=== PATIENT | male | born 1965 | race Caucasian/White ===

== ENCOUNTER 2018-11-28 11:12 | Observation (INO) | payer SELFPAY ==
[~2018-11-28] VITALS: Ht 165.1 cm; Wt 81.6 kg
--- NOTE | 2018-11-28 11:32 | NUR ---
PT TO ROOM WITH A STEADY GAIT.
--- NOTE | 2018-11-28 11:40 | NUR ---
PT RESTING IN BED IN NO ACUTE DISTRESS, WHEEZING AND RHONCHI THROUGHOUT LUNG HINES AT THIS TIME. O2 SAT 95% ON RA. SKIN PWD
[2018-11-28 12:13] LABS: HEMATOCRIT 50.3 % (39.0-50.0); HEMOGLOBIN 16.5 g/dl (14.0-18.0); IMMATURE GRANULOCYTES 0.6 % (0.0-5.0); MEAN CELL VOLUME 92.6 fL CALC (80.0-100.0); MEAN CORPUSCULAR HGB 30.4 pG CALC (26.0-32.0); MEAN CORPUSCULAR HGB CONC 32.8 g/L CALC (32.0-36.0); NEUT# 5.09 thou/uL (1.82-7.42); RED BLOOD COUNT 5.43 mill/uL (4.70-6.10); RED CELL DISTRI WIDTH 12.8 % (11.5-15.5)
[2018-11-28 12:35] LABS: ALBUMIN 4.6 g/dL (3.2-5.0); ALKALINE PHOSPHATASE 87 u/l (38-126); ANION GAP 15 (6-22 (CALC)); BUN 6 mg/dL (9-20); BUN/CREATININE RATIO 8 (12-20 (CALC)); CARBON DIOXIDE 28 mmol/l (22-30); CHLORIDE 97 mmol/l (95-108); CREATININE 0.8 mg/dL (0.7-1.3); GFR > 60 ML/MIN (>=60 (CALC)); GFR FOR AFR.AMER. > 60 ML/MIN (>=60 (CALC)); POTASSIUM 4.7 mmol/l (3.5-5.1); SGOT/AST 59 u/l (17-59); SODIUM 135 mmol/l (137-146); TOTAL PROTEIN 7.4 g/dL (6.3-8.2)
--- NOTE | 2018-11-28 12:45 | NUR ---
PT IN NO ACUTE DISTRESS, COMPLETING BREATHING TX ORDERED. O2 SAT 99% ON o2@2LPM VIA NC. PT STATES HE FEELS LIKE HE IS BREATHIGN "MUCH EASIER". NO DYSPNEA OR SOB, NOTED WET NON PRODUCTIVE COUGH
--- NOTE | 2018-11-28 13:40 | NUR ---
PT RESTING COMFORTABLY WITH HOB ELEVATED ON O2@2LPM VIA NC. LUNGS COARSE BILATERALLY. IV ABT CONTINUES VIA H/L.PT TOLERATING WELL AND AGREEABLE TO ADMIT
--- NOTE | 2018-11-28 14:35 | NUR ---
1435 - TRANSPORTED TO MED SURG ROOM 261, HANDOFF TO PATTY ZAMORANO
--- NOTE | 2018-11-28 14:35 | NUR ---
Admission Note Report Given to: SBAR PRINTED TO FLOOR Transported by: X Wheelchair Stretcher Transported with: X Nurse Transporter X Patent IV O2 X It Network Engineer
--- NOTE | 2018-11-28 14:40 | NUR ---
PT ARRIVED TO FLOOR VIA WC ACCOMPANIED BY JAUN FREIRE. PT AMBULATES INDEPENDENTLY. STEADY GAIT. SOB W/ EXERTION. O2 @ 2L VIA NC. 320 RAC, SALINE LOCK. ALERT AND ORIENTED. PT ORIENTED TO ROOM AND EQUIPMENT. PLAN OF CARE DISCUSSED. CALL LIGHT REVIEWED AND IN REACH. TELE UNIT READING SR @ 92 PER TAI PUGA IN ED. ASSESSMENT COMPLETED AT THIS TIME. PT DENIES PAIN. REPORTING OF CONCERNS ENCOURAGED. PT STATES UNDERSTANDING.
--- NOTE | 2018-11-28 16:05 | NUR ---
PT TO CT FOR CT OF CHEST VIA WC ACCOMPANIED BY VOLUNTEER. RETURNED TO ROOM. HARRIS PROVIDED TO PT. NO OTHER COMPLAINTS AT THIS TIME.
[2018-11-28 16:09] VITALS: BP 176/81
--- NOTE | 2018-11-28 16:19 | NUR ---
DR. ASHLEY IN TO SEE PT. AT THIS TIME.
[2018-11-28 19:16] VITALS: BP 155/56
--- NOTE | 2018-11-28 20:00 | NUR ---
PT AMBULATING IN ROOM, NO SIGNS OF DISTRESS NOTED, RESP EVEN AND UNLABORED. PT ALERT AND ORIENTED X3, NO EDEMA. DISCUSSED POC, PT IN AGREEMENT. ASSESSMENT COMPLETED, CALL LIGHT IN REACH,CONTINUE TO MONITOR.
--- NOTE | 2018-11-28 21:30 | NUR ---
PT SITTING IN RECLINER, NO SIGNS OF DISTRESS NOTED, RESP EVEN AND UNLABORED. PT MEDICATED PER MAR, CALL LIGHT IN REACH,CONTINUE TO MONITOR.
[2018-11-29] VITALS: BP 159/86
--- NOTE | 2018-11-29 | NUR ---
PT SITTING IN BED WATCHING TV, NO SIGNS OF DISTRESS NOTED, RESP EVEN AND UNLABORED. VOICES NO NEEDS OR COMPLAINTS AT THIS TIME, CALL LIGHT IN REACH,CONTINUE TO MONITOR.
[2018-11-29 05:02] VITALS: BP 174/86
[2018-11-29 06:15] LABS: HEMATOCRIT 47.2 % (39.0-50.0); HEMOGLOBIN 15.8 g/dl (14.0-18.0); IMMATURE GRANULOCYTES 0.5 % (0.0-5.0); MEAN CELL VOLUME 91.8 fL CALC (80.0-100.0); MEAN CORPUSCULAR HGB 30.7 pG CALC (26.0-32.0); MEAN CORPUSCULAR HGB CONC 33.5 g/L CALC (32.0-36.0); NEUT# 6.95 thou/uL (1.82-7.42); RED BLOOD COUNT 5.14 mill/uL (4.70-6.10); RED CELL DISTRI WIDTH 12.6 % (11.5-15.5)
[2018-11-29 06:35] LABS: ALBUMIN 4.2 g/dL (3.2-5.0); ALKALINE PHOSPHATASE 74 u/l (38-126); ANION GAP 12 (6-22 (CALC)); BILIRUBIN, TOTAL 0.7 mg/dL (0.0-1.4); BUN 11 mg/dL (9-20); BUN/CREATININE RATIO 14 (12-20 (CALC)); CARBON DIOXIDE 27 mmol/l (22-30); CHLORIDE 101 mmol/l (95-108); CREATININE 0.8 mg/dL (0.7-1.3); GFR > 60 ML/MIN (>=60 (CALC)); GFR FOR AFR.AMER. > 60 ML/MIN (>=60 (CALC)); LIPASE 56 u/l (23-300); MAGNESIUM 2.3 mg/dL (1.6-2.3); POTASSIUM 4.2 mmol/l (3.5-5.1); SGOT/AST 27 u/l (17-59); SODIUM 136 mmol/l (137-146); TOTAL PROTEIN 6.9 g/dL (6.3-8.2)
[2018-11-29 06:42] LABS: AMYLASE < 30 u/l (30-110)
--- NOTE | 2018-11-29 06:50 | NUR ---
PT REPORT RECIEVED FROM WILLIAM GONZALEZ. PT RESTING. NO S/S OF DISTRESS. CALL LIGHT IN REACH. WILL CONTINUE TO MONITOR.
[2018-11-29 07:48] VITALS: BP 159/80
--- NOTE | 2018-11-29 07:48 | NUR ---
PT A/O X3. SPEECH IS CLEAR. NONPRODUCTIVE COUGH NOTED. RESP EVEN AND UNLABORED. LUNG SOUNDS COARSE. TELE IN PLACE. O2 @2L ON PT. BOWEL SOUNDS ACTIVE X4. STRONG RADIAL AND PEDAL PULSES. #20 RAC SL. FLUSHED AND PATENT. SITE APPEARS HEALTHY. PT DENIES ANY PAIN OR NEEDS. POC DISCUSSED. SAFETY PRECAUTIONS IN PLACE. CALL LIGHT IN REACH. WILL CONTINUE TO MONITOR.
[2018-11-29 11:20] VITALS: BP 167/81
--- NOTE | 2018-11-29 11:33 | NUR ---
DR. ASHLEY IN TO SEE PT
--- NOTE | 2018-11-29 12:20 | NUR ---
PT WATCHING TELEVISION. NO C/O PAIN OR NEEDS. TELE IN PLACE. CALL LIGHT IN REACH. WILL CONTINUE TO MONITOR.
[2018-11-29] MEDS ORDERED: DOXYCYCL HYC100 MG PO (12:30)
[2018-11-29] MEDS ORDERED: MEDDOSEPAK PO (12:30)
[2018-11-29] MEDS ORDERED: ALBUTEROL1 IN (12:32)
--- NOTE | 2018-11-29 12:55 | NUR ---
D/C INSTRUCTIONS DISCUSSED W/ PT. PT STATES UNDERSTANDING. IV REMOVED. CATHETER INTACT. TELE REMOVED. PT GETTING DRESSED AT THIS TIME.
--- NOTE | 2018-11-29 13:20 | NUR ---
Discharge instructions given. Patient verbalizes understanding of same. Discharged in stable condition via Wheelchair to Home with *Other. All belongings sent with pt.
== END 2018-11-29 13:15 | disposition home or self-care (01) | DRG 192 ==
LOC: ED 11:12 → ED-I 12:50 → ED 12:55 → MS2 12:56
PROVIDERS: Family Medicine; ADMIT Internal Medicine Nephrology; ATTEND Internal Medicine Nephrology
DX: J44.1 Chronic obstructive pulmonary disease with (acute) exacerbation (principal); I10 Essential (primary) hypertension; F17.210 Nicotine dependence, cigarettes, uncomplicated
CPT/HCPCS: G0378

== ENCOUNTER 2022-04-17 00:20 | Observation (INO) | payer SELFPAY ==
[2022-04-17] VITALS (28 sets, daily range): BP systolic 139–236; BP diastolic 69–113
[~2022-04-17] VITALS: Ht 165.1 cm; Wt 74.0 kg
[~2022-04-17 00:20] MED LIST: ALBUTEROL1 IN; DOXYCYCL HYC100 MG PO; MEDDOSEPAK PO
[2022-04-17 01:16] LABS: HEMATOCRIT 47.4 % (39.0-50.0); HEMOGLOBIN 15.8 g/dl (14.0-18.0); IMMATURE GRANULOCYTES 0.6 % (0.0-5.0); MEAN CELL VOLUME 94.8 fL CALC (80.0-100.0); MEAN CORPUSCULAR HGB 31.6 pG CALC (26.0-32.0); MEAN CORPUSCULAR HGB CONC 33.3 g/dL CAL (32.0-36.0); NEUT# 3.92 thou/uL (1.82-7.42); RED CELL DISTRI WIDTH 12.7 % (11.5-15.5)
[2022-04-17 01:41] LABS: ALBUMIN 3.8 g/dL (3.2-5.0); ALKALINE PHOSPHATASE 68 u/l (38-126); ANION GAP 10 (6-22 (CALC)); BILIRUBIN, TOTAL 0.9 mg/dL (0.0-1.4); BUN 15 mg/dL (9-20); BUN/CREATININE RATIO 16 (12-20 (CALC)); CARBON DIOXIDE 28 mmol/l (22-30); CHLORIDE 103 mmol/l (95-108); CREATININE 0.9 mg/dL (0.7-1.3); GFR FOR AFR.AMER. > 60 ML/MIN (>=60 (CALC)); GFR OTHER RACES > 60 ML/MIN (>=60 (CALC)); SGOT/AST 46 u/l (17-59); SODIUM 137 mmol/l (137-146); TOTAL PROTEIN 6.9 g/dL (6.3-8.2)
[2022-04-17 01:45] LABS: URINE BLOOD DIPSTICK LARGE (NEGATIVE); URINE GLUCOSE - DIPSTICK NEGATIVE (NEGATIVE); URINE KETONE NEGATIVE (NEGATIVE); URINE PH 5.5 (4.5-8.0); URINE PROTEIN - DIPSTICK 30 mg/dL (NEG-TRACE); URINE SPECIFIC GRAVITY >=1.030
[2022-04-17 01:46] LABS: URINE BILIRUBIN - DIPSTICK SMALL (NEGATIVE); URINE NITRITE - DIPSTICK NEGATIVE (Negative)
[2022-04-17 01:47] LABS: URINE COLOR DK. YELLOW; URINE LEUK ESTERASE NEGATIVE (NEGATIVE)
[2022-04-17 01:51] LABS: URINE BACTERIA FEW hpf; URINE EPITHELIAL CELLS FEW EPI/hpf (0-FEW); URINE RBC 25-50 RBC/hpf (0-5)
[2022-04-17 01:54] LABS: MYOGLOBIN 25 ng/mL (0 - 121)
[2022-04-17] MEDS ORDERED: ULTRAM50 M1 PO (03:26)
[2022-04-17] MEDS ORDERED: TAMSULOSIN0.4 MG PO (03:26)
[2022-04-17] MEDS ORDERED: MEDDOSEPAK PO (03:26)
[2022-04-17] MEDS ORDERED: ALBUTEROL SUL0.083 % NEB (03:48)
[2022-04-18] VITALS (7 sets, daily range): BP systolic 124–171; BP diastolic 54–70
[2022-04-18 05:38] LABS: IMMATURE GRANULOCYTES 0.4 % (0.0-5.0); MEAN CELL VOLUME 94.9 fL CALC (80.0-100.0); MEAN CORPUSCULAR HGB 31.6 pG CALC (26.0-32.0); MEAN CORPUSCULAR HGB CONC 33.3 g/dL CAL (32.0-36.0); NEUT# 7.69 thou/uL (1.82-7.42); RED BLOOD COUNT 4.11 mill/uL (4.70-6.10); RED CELL DISTRI WIDTH 12.9 % (11.5-15.5)
[2022-04-18 06:19] LABS: ANION GAP 9 (6-22 (CALC)); BUN 12 mg/dL (9-20); BUN/CREATININE RATIO 13 (12-20 (CALC)); CARBON DIOXIDE 23 mmol/l (22-30); CHLORIDE 107 mmol/l (95-108); GFR FOR AFR.AMER. > 60 ML/MIN (>=60 (CALC)); GFR OTHER RACES > 60 ML/MIN (>=60 (CALC)); MAGNESIUM 1.9 mg/dL (1.6-2.3); POTASSIUM 3.2 mmol/l (3.5-5.1); SODIUM 135 mmol/l (137-146)
[2022-04-19 04:24] VITALS: BP 163/86
[2022-04-19 05:39] LABS: ANION GAP 11 (6-22 (CALC)); BUN 12 mg/dL (9-20); BUN/CREATININE RATIO 17 (12-20 (CALC)); CARBON DIOXIDE 21 mmol/l (22-30); CHLORIDE 107 mmol/l (95-108); CREATININE 0.8 mg/dL (0.7-1.3); GFR FOR AFR.AMER. > 60 ML/MIN (>=60 (CALC)); GFR OTHER RACES > 60 ML/MIN (>=60 (CALC)); POTASSIUM 3.6 mmol/l (3.5-5.1); SODIUM 135 mmol/l (137-146)
[2022-04-19 06:37] VITALS: BP 145/65
[2022-04-19 07:18] VITALS: BP 145/65
[2022-04-19] MEDS ORDERED: ADLT ASA LOW81 MG PO (11:49)
[2022-04-19] MEDS ORDERED: AMLODIPINE BESYL5 MG PO (11:49)
[2022-04-19] MEDS ORDERED: TAMSULOSIN HCL0.4 MG PO (11:49)
[2022-04-19] MEDS ORDERED: PREDNISONE10 MG PO (11:50)
[2022-04-19] MEDS ORDERED: ZITHROMAX250 MG PO (11:51)
[2022-04-19 14:45] VITALS: BP 133/64
[2022-04-19 15:07] VITALS: BP 133/64
== END 2022-04-19 17:20 | disposition home or self-care (01) | DRG 191 ==
LOC: ED 00:20 → ED-I 01:00 → ED 01:00 → ED-I 03:55 → ED 04:13 → MS2 04:14
PROVIDERS: Emergency Medicine; Nurse Practitioner; ADMIT Internal Medicine; ATTEND Internal Medicine
DX: J44.1 Chronic obstructive pulmonary disease with (acute) exacerbation (principal); F10.139 Alcohol abuse with withdrawal, unspecified; R07.89 Other chest pain; I10 Essential (primary) hypertension; F17.210 Nicotine dependence, cigarettes, uncomplicated; N20.0 Calculus of kidney; R09.02 Hypoxemia; Z91.14 Patient's other noncompliance with medication regimen; I50.9 Heart failure, unspecified
CPT/HCPCS: G0378; J1650; Q9967; S0164